=== PATIENT | female | born 1990 | race Two or more races ===

== ENCOUNTER 2019-04-29 08:56 | Emergency (ER) | payer OTHER ==
[~2019-04-29] VITALS: Ht 182.9 cm; Wt 69.9 kg
--- NOTE | 2019-04-29 09:00 | NUR ---
BIB 80 C/O SUICIDAL IDEATION "I WANT TO JUMP OFF THE BUILDING", +HEARING VOICES. TO ER BED 15, HOOKED TO MONITOR, PROVIDED W WARM BLANKET, AWAITING MD JIMENEZ
--- NOTE | 2019-04-29 09:08 | NUR ---
DR NORMAN AT BEDSIDE
--- NOTE | 2019-04-29 09:10 | NUR ---
URINE SPECIMEN COLLECTED AND SENT TO LAB.
[2019-04-29 09:27] LABS: BASOPHILS # (AUTO) 0.1 /CMM (0.0-0.2); EOSINOPHILS % (AUTO) 0.1 % (0.0-6.0); HEMATOCRIT 37 % (33-45); HEMOGLOBIN 12.1 g/dL (11.5-14.8); LYMPHOCYTES # (AUTO) 1.9 /CMM (0.8-4.8); LYMPHOCYTES % (AUTO) 28.2 % (20.0-44.0); MEAN CORPUSCULAR HGB CONC 33 g/dl (31.0-36.0); MEAN CORPUSCULAR VOLUME 85 fL (82-100); MONOCYTES # (AUTO) 1.2 /CMM (0.1-1.30); MONOCYTES % (AUTO) 17.7 % (2.0-12.0); NEUTROPHILS # (AUTO) 3.6 /CMM (1.8-8.9); PLATELET COUNT (AUTO) 314 /CMM (150-450); RED BLOOD CELL COUNT(AUTO) 4.29 MIL/uL (4.0-5.2); WHITE BLOOD COUNT (AUTO) 6.7 K/uL (4.3-11.0)
[2019-04-29 09:34] LABS: CARBON DIOXIDE 28 mmol/L (21-32); CHLORIDE 103 mmol/L (98-107); CREATININE 0.6 mg/dL (0.6-1.3); GLUCOSE 94 mg/dL (74-106); POTASSIUM 3.9 mmol/L (3.5-5.1); SODIUM SERUM 139 mmol/L (136-145); UREA NITROGEN, BLOOD 21 mg/dL (7-18)
[2019-04-29 09:40] LABS: ACETAMINOPHEN 0 ug/ml (10-30); ALANINE AMINOTRANSFERASE 27 U/L (12-78); ALBUMIN 3.9 g/dL (3.4-5.0); ALCOHOL, BLOOD < 3 mg/dL (0-0); ALKALINE PHOSPHATASE 54 U/L (46-116); ASPARTATE AMINOTRANSFERASE 20 U/L (15-37); BILIRUBIN,DIRECT 0.1 mg/dL (0.0-0.2); BILIRUBIN,TOTAL 0.5 mg/dL (0.2-1.0); SALICYLATE 1.9 mg/dL (2.8-20.0); TOTAL PROTEIN, SERUM 8.1 g/dL (6.4-8.2)
[2019-04-29 09:43] LABS: APPEARANCE,URINE Clear (CLEAR); BILIRUBIN,URINE Negative (NEGATIVE); BLOOD, URINE Negative Ery/uL (NEGATIVE); COLOR,URINE Yellow (YELLOW); KETONES,URINE Negative (NEGATIVE); LEUKOCYTE ESTERASE ,URINE Negative (NEGATIVE); NITRITE, URINE Negative (NEGATIVE); PH,URINE 7.5 (5.0-8.0); PROTEIN,URINE 30 mg/dl (NEGATIVE); UGLUCOSE Negative (NEGATIVE); UROBILINOGEN,URINE 0.2 EU/dL (0.2)
[2019-04-29 09:44] LABS: BACTERIA,URINE Rare /HPF (None Seen); RBC,URINE 0-2 /HPF (0-2); SQUAMOUS EPITHELIAL CELL,UR Few /HPF (None Seen); WBC,URINE 0-2 /HPF (0-3)
[2019-04-29 10:55] LABS: BAND % (MANUAL) 2 % (0.0-5.0); LYMPHOCYTES % (MANUAL) 25 % (16-48); MONOCYTES % (MANUAL) 14 % (0-11.0); NEUTROPHILS % (MANUAL) 59 (42-76)
--- NOTE | 2019-04-29 12:05 | NUR ---
FRUIT OR NUT FARMWORKER RUBEN SHAFFER AT BEDSIDE
--- NOTE | 2019-04-29 15:09 | NUR ---
CALLED [employer]IVIT[employer] MANAGER [employer] REGARDING PLAN FOR PT REQUESTING DISCHARGE, LEFT VOICEMAIL
--- NOTE | 2019-04-29 15:35 | NUR ---
ART STATES ON THE WAY FOR DISCHARGE
--- NOTE | 2019-04-29 15:55 | NUR ---
CUSHION GUM APPLICATOR KATIE COLLINS AT BEDSIDE. PT SIGNED HOMELESS DISCHARGE WAIVER
--- NOTE | 2019-04-29 16:20 | NUR ---
PT WEARING RIPPED LEGGINGS, PT WAS OFFERED CLOTHING/PANTS AND PT REFUSED.
--- NOTE | 2019-04-29 16:25 | NUR ---
Patient given written and verbal discharge instructions. Patient verbalizes understanding of instructions. Patient is ambulatory with steady gait. Refuses offer of [facility] placement. Patient given list of available shelters in surrounding area.
[2019-04-29 16:30] VITALS: BP 112/68
== END 2019-04-29 16:35 | disposition home or self-care (01) ==
LOC: ER 08:56
DX: F32.9 Major depressive disorder, single episode, unspecified (principal); R45.851 Suicidal ideations; F20.9 Schizophrenia, unspecified; Z88.9 Allergy status to unspecified drugs, medicaments and biological substances; Z88.5 Allergy status to narcotic agent; Z88.8 Allergy status to other drugs, medicaments and biological substances; Z59.0 Homelessness
CPT/HCPCS: 36415; 80048; 80076; 80305; 80307; 80329; 81001; 84703; 85025; 99285; G0480; 81000-TC